=== PATIENT | female | born 1935 | race Caucasian/White ===

== ENCOUNTER 2017-05-31 16:54 | Observation (INO) | payer MEDICARE, OTHER ==
[~2017-05-31] VITALS: Ht 157.5 cm; Wt 65.0 kg
[~2017-05-31 16:54] MED LIST: COUM5TAB PO; FLON0.053; LEVO75TA3 PO; LISI2.5T55 PO; LORA1TAB PO; METO50TA PO; ROSU10 PO; VENTAER INH; VITA500T10 PO
[2017-05-31 17:10] VITALS: BP 172/74; PULSE 85; RESP 17; TEMP 98.7; O2SAT 95
[2017-05-31] MEDS ORDERED: SODIUM CHLOR 0.9% 1000 ML INJ 1,000 ML IV ONE (17:58)
[2017-05-31] MEDS ORDERED: DIPHTH/TETANUS/ACEL PERTUSSIS (BOOSTER) 0.5 ML VIAL/PFS IM ONE (18:00)
[2017-05-31] MEDS ORDERED: SODIUM CHLORIDE 0.9% FLUSH 10 ML FLUSH IVF PRN (18:00)
--- NOTE | 2017-05-31 18:02 | PD ---
HPI Chief Complaint: Syncope/Near-Syncope Time Seen by Provider: 17:49 Travel History International Travel<30 days: No Contact w/Intl Traveler<30days: No Traveled to known affect area: No History of Present Illness HPI Patient is a 82-year-old female with history of TIA, Hypertension, Hyperlipidemia, Hypothyroidism, presents to ER after she had a syncopal episode today. Patient reports that she was out to lunch today, reports that she currently is being treated for urinary tract infection with antibiotics. Patient reports that she was getting off the toilet when she fell forward and blacked out. Patient reports that she hit her head on the wall, reports that when she realized she was on the ground, she did scream for help. Patient reports that she saw blood all over the floors, patient currently is on Coumadin as she has history of TIAs. Patient presents the emergency with complaints of a headache and pains to her right hand where her laceration is. Patient with no pain or shortness of breath at this time. Patient with no fevers or chills, no nausea or vomiting, with no abdominal pain, patient with no other complaints at this time. PFSH Past Medical History Hx Anticoagulant Therapy: Yes Arthritis: No Asthma: No Autoimmune Disease: No Anxiety: No Depression: No Heart Rhythm Problems: No Cancer: Yes (SKIN) Cardiac Catheterization: Yes Cardiovascular Problems: Yes High Cholesterol: Yes Chemotherapy: No Chest Pain: Yes (NM ) Congestive Heart Failure: No COPD: No Cerebrovascular Accident: Yes (TIA) Diabetes: Yes (TYPE II CONTROLLED BY DIET ) Patient Takes Glucophage: No Diminished Hearing: Yes (HEARING AIDS) Deep Vein Thrombosis: Yes Endocrine: Yes GERD: No Genitourinary: No Hiatal Hernia: No Hypertension: Yes Immune Disorder: No Kidney Stones: No Musculoskeletal: No Neurologic: Yes Psychiatric: No Reproductive: No Respiratory: No Immunizations Current: Yes Migraines: No Myocardial Infarction: Yes (2009) Radiation Therapy: No Renal Failure: No Seizures: No Sickle Cell Disease: No Sleep Apnea: No Thyroid Disease: Yes Triglycerides - High: Yes Ulcer: No ?: Not Menopausal: Yes Past Surgical History Abdominal Surgery: No AICD: No Appendectomy: Yes Arteriovenous Shunt: No Cardiac Surgery: No Ear Surgery: No Endocrine Surgery: No Eye Surgery: No Genitourinary Surgery: No Gynecologic Surgery: Yes (HYST) Hysterectomy: Yes Insulin Pump: No Joint Replacement: No Oral Surgery: No Pacemaker: No Thoracic Surgery: No Other Surgery: Yes (VEIN STRIPPING IN BOTH LEGS - 1972) Social History Alcohol Use: Yes (RARE) Tobacco Use: No Substance Use: No Allergies-Medications (Allergen,Severity, Reaction): Coded Allergies: Iodinated Contrast- Oral and IV Dye (Unverified Allergy, Severe, HIVES, ) PT STATES SHE DEVELOPED LARGE BUMPS ALL OVER AND HAD TO BE PLACED ON A STEROID DOSE PACK penicillin G (Unverified Allergy, Severe, HIVES, 05/31/17) Reported Meds & Prescriptions Reported Meds & Active Scripts Active Reported Cranberry Urinary Comfort (Vitamins C & E) 1 Cap 1 Cap PO BID [Urocholcine] 25 Mg PO TID Probiotic (Lactobacillus Acidophilus) 10 Billion Cell Cap 1 Cap PO DAILY Tramadol (Tramadol HCl) 50 Mg Tab 50 Mg PO HS Lorazepam 1 Mg Tab 1 Mg PO DAILY Warfarin 5 Mg Tab 5 Mg PO DAILY Ranitidine (Ranitidine HCl) 150 Mg Tab 150 Mg PO BID Verapamil SR (Verapamil HCl) 180 Mg Cap 180 Mg PO DAILY Metoprolol Tartrate 25 Mg Tab 25 Mg PO BID Atorvastatin (Atorvastatin Calcium) 40 Mg Tab 40 Mg PO HS Lisinopril 2.5 Mg Tab 2.5 Mg PO DAILY Gabapentin 100 Mg Cap 100 Mg PO BID Levothyroxine (Levothyroxine Sodium) 75 Mcg Tab 75 Mcg PO DAILY Review of Systems General / Constitutional: No: Fever Eyes: No: Visual changes HENT: Positive: Headaches, No: Neck Pain Cardiovascular: No: Chest Pain or Discomfort Respiratory: No: Shortness of Breath Gastrointestinal: No: Abdominal Pain Genitourinary: No: Dysuria Musculoskeletal: No: Pain Skin: No Rash Neurologic: Positive: Dizziness, Syncope, No: Weakness Psychiatric: No: Depression Endocrine: No: Polydipsia Hematologic/Lymphatic: No: Easy Bruising Physical Exam Narrative GENERAL: Moderate distress SKIN: Focused skin assessment warm/dry. HEAD: Normocephalic. Patient with a 2 cm linear laceration to her right lateral forehead above eyebrow EYES: Pupils equal and round. No scleral icterus. No injection or drainage. ENT: No nasal bleeding or discharge. Mucous membranes pink and moist. NECK: Trachea midline. No JVD. CARDIOVASCULAR: Regular rate and rhythm. No murmur appreciated. RESPIRATORY: No accessory muscle use. Clear to auscultation. Breath sounds equal bilaterally. GASTROINTESTINAL: Abdomen soft, non-tender, nondistended. Hepatic and splenic margins not palpable. MUSCULOSKELETAL: No obvious deformities. No clubbing. No cyanosis. No edema. Patient with a 2cm linear laceration to her right digit #3 volar aspect; patient with skin avulsion to left hand NEUROLOGICAL: Awake and alert. No obvious cranial nerve deficits. Motor grossly within normal limits. Normal speech. PSYCHIATRIC: Appropriate mood and affect; insight and judgment normal. Data Data Last Documented VS Vital Signs Date Time Temp Pulse Resp B/P (MAP) Pulse Ox O2 Delivery O2 Flow Rate FiO2 05/31/17 17:10 98.7 85 17 172/74 (106) 95 Orders Orders Electrocardiogram (05/31/17 ) Blood Glucose (05/31/17 17:49) Complete Blood Count With Diff (05/31/17 17:58) Comprehensive Metabolic Panel (05/31/17 17:58) Magnesium (Mg) (05/31/17 17:58) B-Type Natriuretic Peptide (05/31/17 17:58) Ckmb (Isoenzyme) Profile (05/31/17 17:58) Troponin I (05/31/17 17:58) Act Partial Throm Time (Ptt) (05/31/17 17:58) Prothrombin Time / Inr (Pt) (05/31/17 17:58) Urinalysis - C+S If Indicated (05/31/17 17:58) Chest, Single Ap (05/31/17 17:58) Ct Brain W/O Iv Contrast(Rout) (05/31/17 17:58) Ct Cerv Spine W/O Contrast (05/31/17 17:58) Ecg Monitoring (05/31/17 17:58) Iv Access Insert/Monitor (05/31/17 17:58) Oximetry (05/31/17 17:58) Sodium Chloride 0.9% Flush (Ns Flush) (05/31/17 18:00) Sodium Chlor 0.9% 1000 Ml Inj (Ns 1000 M (05/31/17 17:58) Lenz-Lpe-Dcwzmy (Booster) Inj (Boostrix (05/31/17 18:00) Hand, Complete ([id number]) (05/31/17 ) CKMB (05/31/17 18:30) CKMB% (05/31/17 18:30) Labs Laboratory Tests Test 05/31/17 18:30 White Blood Count 10.8 TH/MM3 Red Blood Count 4.78 MIL/MM3 Hemoglobin 13.3 GM/DL Hematocrit 40.0 % Mean Corpuscular Volume 83.7 FL Mean Corpuscular Hemoglobin 27.8 PG Mean Corpuscular Hemoglobin Concent 33.3 % Red Cell Distribution Width 17.0 % Platelet Count 349 TH/MM3 Mean Platelet Volume 7.0 FL Neutrophils (%) (Auto) 81.0 % Lymphocytes (%) (Auto) 9.6 % Monocytes (%) (Auto) 8.4 % Eosinophils (%) (Auto) 0.3 % Basophils (%) (Auto) 0.7 % Neutrophils # (Auto) 8.7 TH/MM3 Lymphocytes # (Auto) 1.0 TH/MM3 Monocytes # (Auto) 0.9 TH/MM3 Eosinophils # (Auto) 0.0 TH/MM3 Basophils # (Auto) 0.1 TH/MM3 CBC Comment DIFF FINAL Differential Comment Prothrombin Time 36.2 SEC Prothromb Time International Ratio 3.1 RATIO Activated Partial Thromboplast Time 36.8 SEC Urine Color COLORLESS Urine Turbidity CLEAR Urine pH 6.0 Urine Specific [place] 1.003 Urine Protein NEG mg/dL Urine Glucose (UA) NEG mg/dL Urine Ketones NEG mg/dL Urine Occult Blood TRACE Urine Nitrite NEG Urine Bilirubin NEG Urine Urobilinogen LESS THAN 2.0 MG/DL Urine Leukocyte Esterase NEG Urine WBC 1 /hpf Urine Squamous Epithelial Cells <1 /hpf Urine Bacteria RARE /hpf Microscopic Urinalysis Comment CULT NOT INDICATED Blood Urea Nitrogen 10 MG/DL Creatinine 0.79 MG/DL Random Glucose 126 MG/DL Total Protein 7.8 GM/DL Albumin 3.6 GM/DL Calcium Level 9.5 MG/DL Magnesium Level 2.1 MG/DL Alkaline Phosphatase 89 U/L Aspartate Amino Transf (AST/SGOT) 26 U/L Alanine Aminotransferase (ALT/SGPT) 27 U/L Total Bilirubin 0.3 MG/DL Sodium Level 139 MEQ/L Potassium Level 3.6 MEQ/L Chloride Level 104 MEQ/L Carbon Dioxide Level 28.8 MEQ/L Anion Gap 6 MEQ/L Estimat Glomerular Filtration Rate 70 ML/MIN Total Creatine Kinase 110 U/L Creatine Kinase MB 3.6 NG/ML Troponin I LESS THAN 0.02 NG/ML MDM Medical Decision Making Medical Screen Exam Complete: Yes Emergency Medical Condition: Yes Medical Record Reviewed: Yes Interpretation(s) EKG at 1805: NSR at 85bpm, qt/qtc: 376/419, 1st degree av block with no acute changes Vital Signs Date Time Temp Pulse Resp B/P (MAP) Pulse Ox O2 Delivery O2 Flow Rate FiO2 05/31/17 17:10 98.7 85 17 172/74 (106) 95 Differential Diagnosis Differential includes syncope, ACS, arrhythmia, intracranial hemorrhage, skin tear, skin lacerations Narrative Course 82-year-old female who presents to emergency room after she had a syncopal episode today while using the bathroom. Patient is currently taking Coumadin as she has history of TIAs. Patient was placed on a cardiac exercise specialist upon arrival to the emergency room, CT of the head, neck were ordered. EKG, Lab work ordered. IV line was established, tetanus will be updated. Vital Signs Date Time Temp Pulse Resp B/P (MAP) Pulse Ox O2 Delivery O2 Flow Rate FiO2 05/31/17 17:10 98.7 85 17 172/74 (106) 95 CBC & BMP Diagram 05/31/17 18:30 Total Protein 7.8, Albumin 3.6, Calcium Level 9.5, Magnesium Level 2.1, Alkaline Phosphatase 89, Aspartate Amino Transf (AST/SGOT) 26, Alanine Aminotransferase (ALT/SGPT) 27, Total Bilirubin 0.3 trop less than 0.02 ckbm: 3.[address] 05/31/171757 Signed Impressions: Service Date/Time: May 18:25 - CONCLUSION: No acute intracranial injury Dane Mejia MD Cervical Spine CT 05/31/171757 Signed Impressions: Service Date/Time: May 18:26 - CONCLUSION: No acute bony injury in the cervical spine. Disc protrusion visualized at C3-4 can be further evaluated on an elective basis with MRI if clinically indicated Dane Mejia MD Lacerations were sutured, plan to obs overnight for evaluation of syncope Diagnosis Primary Impression: Syncope and collapse Additional Impression: Facial laceration Admitting Information Admitting Physician Requests: Observation María Cyr DO May 31, 2017 18:02
[2017-05-31] MEDS ORDERED: [UNRECOGNIZED DRUG - OTHER] PO (18:42)
[2017-05-31] MEDS ORDERED: WARF-23 PO (18:42)
[2017-05-31] MEDS ORDERED: RANI150T PO (18:42)
[2017-05-31] MEDS ORDERED: GABA100C4 PO (18:42)
[2017-05-31] MEDS ORDERED: ATOR40TA16 PO (18:42)
[2017-05-31] MEDS ORDERED: VERA180C3 PO (18:42)
[2017-05-31] MEDS ORDERED: METO25TA3 PO (18:42)
[2017-05-31] MEDS ORDERED: LEVO75TA3 PO (18:42)
[2017-05-31] MEDS ORDERED: LISI2.5T3 PO (18:42)
[2017-05-31] MEDS ORDERED: CRANCAP2 PO (18:42)
[2017-05-31] MEDS ORDERED: LORA1TAB12 PO (18:42)
[2017-05-31] MEDS ORDERED: TRAM50TA PO (18:42)
[2017-05-31] MEDS ORDERED: LACTCAP8 PO (18:42)
[2017-05-31 18:55] LABS: AUTOMATED NEUTROPHIL # 8.7 TH/MM3 (1.8-7.7); BASOPHIL # 0.1 TH/MM3 (0-0.2); BASOPHIL % 0.7 % (0.0-2.0); EOSINOPHIL % 0.3 % (0.0-4.0); HEMOGLOBIN 13.3 GM/DL (11.6-15.3); LYMPH % 9.6 % (9.0-44.0); MEAN CELL VOLUME 83.7 FL (80.0-100.0); MEAN CORPUSCULAR HEMOGLOBIN 27.8 PG (27.0-34.0); MEAN CORPUSCULAR HGB CONC 33.3 % (32.0-36.0); MONO % 8.4 % (0.0-8.0); MONOCYTE # 0.9 TH/MM3 (0-0.9); PLATELET COUNT 349 TH/MM3 (150-450); RED BLOOD COUNT 4.78 MIL/MM3 (4.00-5.30); WHITE BLOOD COUNT 10.8 TH/MM3 (4.0-11.0)
[2017-05-31 18:59] LABS: BACTERIA, URINE RARE /hpf; BILIRUBIN, URINE NEG (NEG); BLOOD, URINE TRACE (NEG); GLUCOSE,URINE NEG (NEG); KETONE, URINE NEG (NEG); NITRITE,URINE NEG (NEG); SQUAMOUS EPITHELIAL CELL URINE <1 /hpf (0-5); URINE COLOR COLORLESS (YELLW/STRAW); URINE LEUKOCYTE ESTERASE NEG (NEG)
--- NOTE | 2017-05-31 19:03 | RADRPT ---
EXAM DATE/TIME: 05/31/2017 18:25 [facility] COMPARISON: CT BRAIN W/O CONTRAST, December 09, 2011, 21:33. INDICATIONS : Fell forward hit forhead on wall. RADIATION DOSE: 56.35 CTDIvol (mGy) MEDICAL HISTORY : Cardiovascular disease. Hypertension. Deep venous thrombosis.Diabetes SURGICAL HISTORY : Hysterectomy. ENCOUNTER: Initial ACUITY: 1 day PAIN SCALE: 5/10 LOCATION: cranial TECHNIQUE: Multiple contiguous axial images were obtained of the head. Using automated exposure control and adj ustment of the mA and/or kV according to patient size, radiation dose was kept as low as reasonably a chievable to obtain optimal diagnostic quality images. DICOM format image data is available electro nically for review and comparison. FINDINGS: There is patchy diminished attenuation in periventricular white matter which appears benign and chron ic. There is no evidence of intracranial mass or hemorrhage. As nothing to suggest acute infarction. CONCLUSION: No acute intracranial injury Dane Mejia MD on May 31, 2017 at 18:58 Board Certified Radiologist. This report was verified electronically.
[2017-05-31 19:07] LABS: ALT (GPT) 27 U/L (10-53)
--- NOTE | 2017-05-31 19:08 | RADRPT ---
EXAM DATE/TIME: 05/31/2017 18:26 [facility] COMPARISON: No previous studies available for comparison. INDICATIONS : Fell forward hit her forehead on wall. RADIATION DOSE: 33.38 CTDIvol (mGy) MEDICAL HISTORY : Cardiovascular disease. Hypertension. Deep venous thrombosis.Diabetes SURGICAL HISTORY : Hysterectomy. ENCOUNTER: Initial ACUITY: 1 day PAIN SCALE: 5/10 LOCATION: neck TECHNIQUE: Volumetric scanning of the cervical spine was performed. Multiplanar reconstructions in the sagittal, coronal and oblique axial planes were performed. Using automated exposure control and adjustment o f the mA and/or kV according to patient size, radiation dose was kept as low as reasonably achievable to obtain optimal diagnostic quality images. DICOM format image data is available electronically f or review and comparison. FINDINGS: Cervical spine alignment is satisfactory. There is no evidence of cervical spine fracture. No bony ca nal or foraminal compromise is identified. There is a moderate sized central to minimally right parac entral disc protrusion seen at C3-4. No evidence of paraspinal hematoma. CONCLUSION: No acute bony injury in the cervical spine. Disc protrusion visualized at C3-4 can be further evaluat ed on an elective basis with MRI if clinically indicated Dane Mejia MD on May 31, 2017 at 19:04 Board Certified Radiologist. This report was verified electronically.
[2017-05-31 19:11] LABS: ALKALINE PHOSPHATASE 89 U/L (45-117); INTERNATIONAL NORMALIZED RATIO 3.1 RATIO; PROTHROMBIN TIME - PATIENT 36.2 SEC (9.8-11.6); TOTAL BILIRUBIN ADULT 0.3 MG/DL (0.2-1.0); TOTAL PROTEIN 7.8 GM/DL (6.4-8.2); TROPONIN I LESS THAN 0.02 NG/ML (0.02-0.05)
[2017-05-31 19:14] LABS: ALBUMIN 3.6 GM/DL (3.4-5.0); AST (GOT) 26 U/L (15-37); BICARBONATE 28.8 MEQ/L (21.0-32.0); BLOOD UREA NITROGEN 10 MG/DL (7-18); CALCIUM 9.5 MG/DL (8.5-10.1); CHLORIDE 104 MEQ/L (98-107); CREATININE 0.79 MG/DL (0.50-1.00); GLOMERULAR FILTRATION RATE 70 ML/MIN (>89); GLUCOSE,RANDOM 126 MG/DL (74-106); MAGNESIUM 2.1 MG/DL (1.5-2.5); SODIUM (NA) 139 MEQ/L (136-145)
--- NOTE | 2017-05-31 19:53 | PD ---
Physical Exam Date Seen by Provider: May 31, 2017 Time Seen by Provider: 19:50 Narrative Right middle finger: Patient has a 2 cm volar laceration at the level of the PIP joint. No tendon or nerve injury. Patient also has a laceration involving the right forehead. This laceration measures 3 cm. No bony step off. Neurovascular intact. Tissues are contused. Data Data Last Documented VS Vital Signs Date Time Temp Pulse Resp B/P (MAP) Pulse Ox O2 Delivery O2 Flow Rate FiO2 05/31/17 17:10 98.7 85 17 172/74 (106) 95 Orders Orders Electrocardiogram (05/31/17 ) Blood Glucose (05/31/17 17:49) Complete Blood Count With Diff (05/31/17 17:58) Comprehensive Metabolic Panel (05/31/17 17:58) Magnesium (Mg) (05/31/17 17:58) B-Type Natriuretic Peptide (05/31/17 17:58) Ckmb (Isoenzyme) Profile (05/31/17 17:58) Troponin I (05/31/17 17:58) Act Partial Throm Time (Ptt) (05/31/17 17:58) Prothrombin Time / Inr (Pt) (05/31/17 17:58) Urinalysis - C+S If Indicated (05/31/17 17:58) Chest, Single Ap (05/31/17 17:58) Ct Brain W/O Iv Contrast(Rout) (05/31/17 17:58) Ct Cerv Spine W/O Contrast (05/31/17 17:58) Ecg Monitoring (05/31/17 17:58) Iv Access Insert/Monitor (05/31/17 17:58) Oximetry (05/31/17 17:58) Sodium Chloride 0.9% Flush (Ns Flush) (05/31/17 18:00) Sodium Chlor 0.9% 1000 Ml Inj (Ns 1000 M (05/31/17 17:58) [id number]-Gnpnto (Booster) Inj (Boostrix (05/31/17 18:00) Hand, Complete ([id number]) (05/31/17 ) CKMB (05/31/17 18:30) CKMB% (05/31/17 18:30) Labs Laboratory Tests Test 05/31/17 18:30 White Blood Count 10.8 TH/MM3 Red Blood Count 4.78 MIL/MM3 Hemoglobin 13.3 GM/DL Hematocrit 40.0 % Mean Corpuscular Volume 83.7 FL Mean Corpuscular Hemoglobin 27.8 PG Mean Corpuscular Hemoglobin Concent 33.3 % Red Cell Distribution Width 17.0 % Platelet Count 349 TH/MM3 Mean Platelet Volume 7.0 FL Neutrophils (%) (Auto) 81.0 % Lymphocytes (%) (Auto) 9.6 % Monocytes (%) (Auto) 8.4 % Eosinophils (%) (Auto) 0.3 % Basophils (%) (Auto) 0.7 % Neutrophils # (Auto) 8.7 TH/MM3 Lymphocytes # (Auto) 1.0 TH/MM3 Monocytes # (Auto) 0.9 TH/MM3 Eosinophils # (Auto) 0.0 TH/MM3 Basophils # (Auto) 0.1 TH/MM3 CBC Comment DIFF FINAL Differential Comment Prothrombin Time 36.2 SEC Prothromb Time International Ratio 3.1 RATIO Activated Partial Thromboplast Time 36.8 SEC Urine Color COLORLESS Urine Turbidity CLEAR Urine pH 6.0 Urine Specific [place] 1.003 Urine Protein NEG mg/dL Urine Glucose (UA) NEG mg/dL Urine Ketones NEG mg/dL Urine Occult Blood TRACE Urine Nitrite NEG Urine Bilirubin NEG Urine Urobilinogen LESS THAN 2.0 MG/DL Urine Leukocyte Esterase NEG Urine WBC 1 /hpf Urine Squamous Epithelial Cells <1 /hpf Urine Bacteria RARE /hpf Microscopic Urinalysis Comment CULT NOT INDICATED Blood Urea Nitrogen 10 MG/DL Creatinine 0.79 MG/DL Random Glucose 126 MG/DL Total Protein 7.8 GM/DL Albumin 3.6 GM/DL Calcium Level 9.5 MG/DL Magnesium Level 2.1 MG/DL Alkaline Phosphatase 89 U/L Aspartate Amino Transf (AST/SGOT) 26 U/L Alanine Aminotransferase (ALT/SGPT) 27 U/L Total Bilirubin 0.3 MG/DL Sodium Level 139 MEQ/L Potassium Level 3.6 MEQ/L Chloride Level 104 MEQ/L Carbon Dioxide Level 28.8 MEQ/L Anion Gap 6 MEQ/L Estimat Glomerular Filtration Rate 70 ML/MIN Total Creatine Kinase 110 U/L Creatine Kinase MB 3.6 NG/ML Troponin I LESS THAN 0.02 NG/ML [facility] Medical Record Reviewed: Yes Supervised Visit with LACEY: Yes Interpretation(s) Last [address] 10/26/17 1758 Signed Impressions: Service Date/Time: May 18:25 - CONCLUSION: No acute intracranial injury Dane Mejia MD Cervical Spine CT 05/31/171757 Signed Impressions: Service Date/Time: May 18:26 - CONCLUSION: No acute bony injury in the cervical spine. Disc protrusion visualized at C3-4 can be further evaluated on an elective basis with MRI if clinically indicated Dane Mejia MD Differential Diagnosis MDM: High Differential diagnoses: Fracture, sprain, strain, dislocation, contusion, neurovascular injury Narrative Course Patient's wounds are closest sutures Procedures Procedure Narrative LACERATION LOCATION: Right middle finger volar pad LENGTH: 2 cm NUMBER OF STITCHES/KIM: 4 REPAIR: The area of the laceration was prepped with Betadine and sterilely draped. The laceration was infiltrated with 1% lidocaine digital block. The wound was copiously irrigated and explored without evidence of foreign body, tendon injury or neurovascular injury. The wound was closed using 4-0 proline. This was a simple single layer repair. A sterile dressing was applied. The patient was advised to keep the dressing clean and dry. Patient tolerated the procedure well. LACERATION LOCATION: Right forehead LENGTH: 3 cm NUMBER OF STITCHES/KIM: 4 REPAIR: The area of the laceration was prepped with Betadine and sterilely draped. The laceration was infiltrated with 1% lidocaine with epinephrine. The wound was copiously irrigated and explored without evidence of foreign body , tendon injury or neurovascular injury. The wound was closed using 6-0 proline. This was a supple single layer repair. A sterile dressing was applied. The patient was advised to keep the dressing clean and dry. Patient tolerated the procedure well. Diagnosis Primary Impression: Syncope and collapse Additional Impression: Facial laceration Condition: Stable Oli Mcdaniel May 31, 2017 19:53
--- NOTE | 2017-05-31 20:26 | HHI.HP ---
[facility] Anjelica Bear MD Admission Diagnosis Syncope Diagnoses: (1) Syncope Diagnosis: Principal (2) Facial laceration Diagnosis: Principal (3) Dehydration Diagnosis: Principal (4) HTN (hypertension) Diagnosis: Principal (5) A-fib Diagnosis: Principal Travel History International Travel<30 Days: No Contact w/Intl Traveler <30 Da: No Traveled to Known Affected Are: No History of Present Illness This is an 82-year-old female with a PMH of HTN, Hyperlipidemia, A. fib on Coumadin, Diet Controlled DM, h/o TIA and CAD who was brought to the ER after syncopal event. Per patient she's been on Bactrim for UTI and has had intermittent episodes of dizziness. Today, had syncopal event while getting up from the toilet. +head trauma. No h/o similar symptoms. On arrival, BP 172/74 , HR 85, O2 sat 95% on RA, Afebrile. CBC unremarkable. Chemistry essentially unremarkable except for GFR 70. Troponin negative. INR 3.1. UA negative. CT Head with no acute findings. CT C-spine negative for fracture. CXR with no acute findings. +facial lacerations on exam, s/p suture in ER. Review of Systems Except as stated in HPI: all other systems reviewed are Neg ROS: 14 point review of systems otherwise negative. Past Family Social History Past Medical History PMH: HTN, Hyperlipidemia, A. fib on Coumadin, Diet Controlled DM, h/o TIA and CAD Past Surgical History PAST SURGICAL HISTORY: Appendectomy, Hysterectomy, Vein Stripping Allergies: Coded Allergies: Iodinated Contrast- Oral and IV Dye (Unverified Allergy, Severe, HIVES, ) PT STATES SHE DEVELOPED LARGE BUMPS ALL OVER AND HAD TO BE PLACED ON A STEROID DOSE PACK penicillin G (Unverified Allergy, Severe, HIVES, 05/31/17) Family History PAST FAMILY HISTORY: Reviewed. No h/o DM or CAD Social History PAST SOCIAL HISTORY: Occasional alcohol. Negative for tobacco or drugs. Physical Exam Vital Signs Vital Signs Date Time Temp Pulse Resp B/P (MAP) Pulse Ox O2 Delivery O2 Flow Rate FiO2 05/31/17 17:10 98.7 85 17 172/74 (106 95 Physical Exam PE: GENERAL: Pleasant elderly female in no acute distress. HEENT: PERRLA, EOMI. No scleral icterus or conjunctival pallor. No lid lag or facial droop. Facial laceration right forehead, s/p sutures. CARDIOVASCULAR: Regular rate and rhythm. No obvious murmurs to auscultation. No chest tenderness to palpation. RESPIRATORY: No obvious rhonchi or wheezing. Clear to auscultation. Breath sounds equal bilaterally. GASTROINTESTINAL: Abdomen soft, non-tender, nondistended. BS normal. MUSCULOSKELETAL: Extremities without clubbing, cyanosis, or edema. No obvious deformities. NEUROLOGICAL: Awake, alert and oriented x4. No focal neurologic deficits. Moving both upper and lower extremities spontaneously. Laboratory Laboratory Tests Test 05/31/17 18:30 White Blood Count 10.8 Red Blood Count 4.78 Hemoglobin 13.3 Hematocrit 40.0 Mean Corpuscular Volume 83.7 Mean Corpuscular Hemoglobin 27.8 Mean Corpuscular Hemoglobin Concent 33.3 Red Cell Distribution Width 17.0 Platelet Count 349 Mean Platelet Volume 7.0 Neutrophils (%) (Auto) 81.0 Lymphocytes (%) (Auto) 9.6 Monocytes (%) (Auto) 8.4 Eosinophils (%) (Auto) 0.3 Basophils (%) (Auto) 0.7 Neutrophils # (Auto) 8.7 Lymphocytes # (Auto) 1.0 Monocytes # (Auto) 0.9 Eosinophils # (Auto) 0.0 Basophils # (Auto) 0.1 CBC Comment DIFF FINAL Differential Comment Prothrombin Time 36.2 Prothromb Time International Ratio 3.1 Activated Partial Thromboplast Time 36.8 Urine Color COLORLESS Urine Turbidity CLEAR Urine pH 6.0 Urine Specific Irene 1.003 Urine Protein NEG Urine Glucose (UA) NEG Urine Ketones NEG Urine Occult Blood TRACE Urine Nitrite NEG Urine Bilirubin NEG Urine Urobilinogen LESS THAN 2.0 Urine Leukocyte Esterase NEG Urine WBC 1 Urine Squamous Epithelial Cells <1 Urine Bacteria RARE Microscopic Urinalysis Comment CULT NOT INDICATED Blood Urea Nitrogen 10 Creatinine 0.79 Random Glucose 126 Total Protein 7.8 Albumin 3.6 Calcium Level 9.5 Magnesium Level 2.1 Alkaline Phosphatase 89 Aspartate Amino Transf (AST/SGOT) 26 Alanine Aminotransferase (ALT/SGPT) 27 Total Bilirubin 0.3 Sodium Level 139 Potassium Level 3.6 Chloride Level 104 Carbon Dioxide Level 28.8 Anion Gap 6 Estimat Glomerular Filtration Rate 70 Total Creatine Kinase 110 Creatine Kinase MB 3.6 Troponin I LESS THAN 0.02 B-Type Natriuretic Peptide 54 Result Diagram: 05/31/17182905/31/171829 Caprini VTE Risk Assessment Caprini VTE Risk Assessment: Mod/High Risk (score >= 2) VTE Pharm Contraindication: High risk for bleeding Caprini Risk Assessment Model Point Value = 1 Point Value = 2 Point Value = 3 Point Value = 5 Age 41-60 Minor surgery BMI > 25 kg/m2 Swollen legs Varicose veins or History of unexplained or recurrent spontaneous Oral contraceptives or hormone replacement Sepsis (< 1 month) Serious lung disease, including pneumonia (< 1 month) Abnormal pulmonary function Acute myocardial infarction Congestive heart failure (< 1 month) History of inflammatory bowel disease Medical patient at bed rest Age 61-74 Arthroscopic surgery Major open surgery (> 45 min) Laparoscopic surgery (> 45 min) Malignancy Confined to bed (> 72 hours) Immobilizing plaster cast Central venous access Age >= 75 History of VTE Family history of VTE Factor V Leiden Prothrombin [id number] Lupus anticoagulant Anticardiolipin antibodies Elevated serum homocysteine Heparin-induced thrombocytopenia Other congenital or acquired thrombophilia Stroke (< 1 month) Elective arthroplasty Hip, pelvis, or leg fracture Acute spinal cord injury (< 1 month) Prophylaxis Regimen Total Risk Factor Score Risk Level Prophylaxis Regimen 0-1 Low Early ambulation 2 Moderate Order ONE of the following: *Sequential Compression Device (SCD) *Heparin 5000 units SQ BID 3-4 Higher Order ONE of the following medications: *Heparin 5000 units SQ TID *Enoxaparin/Lovenox 40 mg SQ daily (WT < 150 kg, CrCl > 30 mL/min) *Enoxaparin/Lovenox 30 mg SQ daily (WT < 150 kg, CrCl > 10-29 mL/min) *Enoxaparin/Lovenox 30 mg SQ BID (WT < 150 kg, CrCl > 30 mL/min) AND/OR *Sequential Compression Device (SCD) 5 or more Highest Order ONE of the following medications: *Heparin 5000 units SQ TID (Preferred with Epidurals) *Enoxaparin/Lovenox 40 mg SQ daily (WT < 150 kg, CrCl > 30 mL/min) *Enoxaparin/Lovenox 30 mg SQ daily (WT < 150 kg, CrCl > 10-29 mL/min) *Enoxaparin/Lovenox 30 mg SQ BID (WT < 150 kg, CrCl > 30 mL/min) AND *Sequential Compression Device (SCD) Assessment and Plan Problem List: (1) Syncope ICD Code: R55 - Syncope and collapse (2) Facial laceration ICD Code: S01.81XA - Laceration without foreign body of other part of head, initial encounter Status: Acute (3) Dehydration ICD Code: E86.0 - Dehydration (4) HTN (hypertension) ICD Code: I10 - Essential (primary) hypertension (5) A-fib ICD Code: I48.91 - Unspecified atrial fibrillation Assessment and Plan A/P: 1. Syncope: acute syncopal event, +head trauma, +dizziness for few days, currently on treatment for UTI, likely vasovagal secondary to dehydration. CT Head/C-Spine w/ no acute findings, images reviewed by me. Trop negative, EKG w / no acute findings. Admit for Observation, Telemetry, check serial cardiac enzymes, check Echo, IVF for hydration. 2. Facial Laceration: secondary to above, s/p suture placement in ER. 3. Dehydration: GFR 70, IVF for hydration, repeat labs in am. 4. HTN: BP 170's on arrival, currently 144/80, HR 77. Resume home medications , monitor BP. 5. A-fib: Chronic. On Coumadin, INR 3.1, hold Coumadin for now in light of head injury. Repeat INR in am. 6. DVT Prophylaxis: On Coumadin as above. 7. Social work for d/c planning as needed. 8. Case discussed w/ ER physician at length. Latha Ferguson MD May 31, 2017 20:26
[2017-05-31] MEDS ORDERED: SODIUM CHLORIDE 0.9% FLUSH 10 ML FLUSH IV FLUSH PRN (20:30)
[2017-05-31] MEDS ORDERED: ONDANSETRON HCL 4 MG/2 ML VIAL IVP PRN (20:30)
[2017-05-31] MEDS ORDERED: LACTULOSE SYRUP 20 GM/30 ML CUP PO PRN (20:30)
[2017-05-31] MEDS ORDERED: ACETAMINOPHEN/HYDROcodone 325 MG/5 MG TAB PO PRN (20:30)
[2017-05-31] MEDS ORDERED: ACETAMINOPHEN 325 MG TAB PO PRN (20:30)
[2017-05-31] MEDS ORDERED: MAGNESIUM HYDROXIDE SUSP 30 ML CUP PO PRN (20:30)
[2017-05-31] MEDS ORDERED: SENNOSIDES 8.6 MG TAB PO PRN (20:30)
[2017-05-31] MEDS ORDERED: BISACODYL 10 MG SUPP RECTAL PRN (20:30)
[2017-05-31] MEDS: SODIUM CHLORIDE 0.9% FLUSH 10 ML FLUSH IV FLUSH SCH (21:00)
[2017-05-31] MEDS ORDERED: ATORVASTATIN 40 MG TAB PO SCH (21:00)
--- NOTE | 2017-05-31 21:07 | RADRPT ---
EXAM DATE/TIME: 05/31/2017 20:53 [facility] COMPARISON: No previous studies available for comparison. INDICATIONS : Syncope. MEDICAL HISTORY : Myocardial infarction. SURGICAL HISTORY : None. ENCOUNTER: Initial ACUITY: 1 day PAIN SCORE: 0/10 LOCATION: Bilateral chest FINDINGS: A single view of the chest demonstrates the lungs to be symmetrically aerated without evidence of mas s, infiltrate or effusion. The cardiomediastinal contours are unremarkable. Osseous structures are intact. CONCLUSION: No acute disease. Dane Mejia MD on May 31, 2017 at 21:05 Board Certified Radiologist. This report was verified electronically.
[2017-05-31 21:27] VITALS: BP 168/84; PULSE 82; RESP 17; O2SAT 98
[2017-05-31] MEDS: METOPROLOL TARTRATE 25 MG TAB PO SCH (21:34)
[2017-05-31] MEDS: SODIUM CHLOR 0.9% 1000 ML INJ 1,000 ML IV SCH (21:34)
[2017-05-31] MEDS: GABAPENTIN 100 MG CAP PO SCH (21:34)
[2017-05-31] MEDS: FAMOTIDINE 20 MG TAB PO SCH (21:35)
[2017-05-31] MEDS: MORPHINE SULFATE 4 MG/ML INJ IV PUSH PRN (21:35)
[2017-05-31] MEDS: DOCUSATE SODIUM 50 MG/SENNA 8.6 MG TAB PO SCH (21:35)
--- NOTE | 2017-05-31 21:38 | RADRPT ---
EXAM DATE/TIME: 05/31/2017 20:56 [facility] COMPARISON: No previous studies available for comparison. INDICATIONS : Right hand pain after fall. MEDICAL HISTORY : None. SURGICAL HISTORY : None. ENCOUNTER: Initial ACUITY: 1 day PAIN SCORE: 6/10 LOCATION: Right hand, 3rd and 4th digit. FINDINGS: There is no evidence of fracture or dislocation. Mineralization is normal. There are mild degenerativ e arthritic changes present most significantly involving the index finger and the radial aspect of th e wrist. There are vascular calcifications present in the soft tissues. CONCLUSION: No acute bony injury Dane Mejia MD on May 31, 2017 at 21:34 Board Certified Radiologist. This report was verified electronically.
--- NOTE | 2017-05-31 23:05 | EKG ---
Date Performed: 05/31/2017 Time Performed: 18:05:24 PTAGE: 82 years EKG: Sinus rhythm WITH FIRST DEGREE AV BLOCK ABNORMAL ECG PREVIOUS TRACING : 12/09/2011 21.01 Compared to prior tracing no significant change DOCTOR: Wallace Campbell Interpretating Date/Time 05/31/2017 23:03:55
[2017-05-31 23:06] VITALS: BP 144/80; PULSE 77; RESP 18; TEMP 98.9; O2SAT 94
[2017-06-01] VITALS (8 sets, daily range): BP systolic 129–188; BP diastolic 65–97; PULSE 71–97; RESP 16–18; TEMP 97.4–98.8; O2SAT 91–98
[2017-06-01] MEDS: MORPHINE SULFATE 4 MG/ML INJ IV PUSH PRN (00:53)
[2017-06-01] MEDS: SODIUM CHLOR 0.9% 1000 ML INJ 1,000 ML IV SCH ×2 (05:20→13:54)
[2017-06-01] MEDS ORDERED: LEVOTHYROXINE SODIUM 75 MCG TAB PO SCH (06:00)
[2017-06-01 07:24] LABS: AUTOMATED NEUTROPHIL # 6.2 TH/MM3 (1.8-7.7); BASOPHIL # 0.1 TH/MM3 (0-0.2); BASOPHIL % 0.6 % (0.0-2.0); EOSINOPHIL % 0.4 % (0.0-4.0); HEMATOCRIT 34.8 % (35.0-46.0); HEMOGLOBIN 11.4 GM/DL (11.6-15.3); LYMPH % 17.7 % (9.0-44.0); LYMPHOCYTE # 1.6 TH/MM3 (1.0-4.8); MEAN CELL VOLUME 83.2 FL (80.0-100.0); MEAN CORPUSCULAR HEMOGLOBIN 27.2 PG (27.0-34.0); MEAN CORPUSCULAR HGB CONC 32.7 % (32.0-36.0); MEAN PLATELET VOLUME 7.2 FL (7.0-11.0); MONO % 13.4 % (0.0-8.0); MONOCYTE # 1.2 TH/MM3 (0-0.9); NEUT % 67.9 % (16.0-70.0); PLATELET COUNT 314 TH/MM3 (150-450); RED BLOOD COUNT 4.18 MIL/MM3 (4.00-5.30); RED CELL DISTRIBUTION WIDTH 16.5 % (11.6-17.2); WHITE BLOOD COUNT 9.2 TH/MM3 (4.0-11.0)
[2017-06-01 07:31] LABS: INTERNATIONAL NORMALIZED RATIO 2.2 RATIO; PROTHROMBIN TIME - PATIENT 25.5 SEC (9.8-11.6)
[2017-06-01 08:03] LABS: ALKALINE PHOSPHATASE 70 U/L (45-117); ALT (GPT) 20 U/L (10-53); AST (GOT) 21 U/L (15-37); BICARBONATE 24.5 MEQ/L (21.0-32.0); BLOOD UREA NITROGEN 8 MG/DL (7-18); CALCIUM 8.8 MG/DL (8.5-10.1); CHLORIDE 104 MEQ/L (98-107); CREATININE 0.51 MG/DL (0.50-1.00); GLOMERULAR FILTRATION RATE 115 ML/MIN (>89); GLUCOSE,RANDOM 104 MG/DL (74-106); SODIUM (NA) 137 MEQ/L (136-145); TOTAL BILIRUBIN ADULT 0.6 MG/DL (0.2-1.0); TOTAL PROTEIN 6.3 GM/DL (6.4-8.2); TROPONIN I 0.03 NG/ML (0.02-0.05)
[2017-06-01] MEDS ORDERED: LACTOBACILLUS ACIDOPHILUS TAB PO SCH (09:00)
[2017-06-01] MEDS ORDERED: LORazepam 1 MG TAB PO SCH (09:00)
[2017-06-01] MEDS ORDERED: VERAPAMIL HCL 180 MG SUSTAINED RELEASE TAB PO SCH (09:00)
[2017-06-01] MEDS: DOCUSATE SODIUM 50 MG/SENNA 8.6 MG TAB PO SCH (09:40)
[2017-06-01] MEDS: GABAPENTIN 100 MG CAP PO SCH (09:40)
[2017-06-01] MEDS: SODIUM CHLORIDE 0.9% FLUSH 10 ML FLUSH IV FLUSH SCH (09:41)
[2017-06-01] MEDS: FAMOTIDINE 20 MG TAB PO SCH (09:41)
[2017-06-01] MEDS: METOPROLOL TARTRATE 25 MG TAB PO SCH (09:41)
--- NOTE | 2017-06-01 09:43 | HHI.PR ---
Subjective Remarks The patient is in bed, appears in nad. Says she did not feel dizzy anymore. Says he has no headache, no change in vision, no motor deficit. Has pain in her right hand. Swelling improved but not much. No cp/sob/n/v/d/c. Objective Vitals Vital Signs Date Time Temp Pulse Resp B/P (MAP) Pulse Ox O2 Delivery O2 Flow Rate FiO2 06/01/17 08:00 77 06/01/17 07:47 97.9 77 16 143/70 (94) 94 06/01/17 04:15 98.8 97 18 188/97 (127) 94 06/01/17 03:16 77 06/01/17 01:06 15 06/01/17 00:07 79 05/31/17 23:06 98.9 77 18 144/80 (101) 94 05/31/17 22:28 05/31/17 21:27 82 17 168/84 (112) 98 Room Air 05/31/17 17:10 98.7 85 17 172/74 (106) 95 I/O 05/31/17 05/31/17 05/31/17 06/01/17 06/01/17 06/01/17 07:00 15:00 23:00 07:00 15:00 23:00 Intake Total 720 ml Balance 720 ml Intake Oral 720 ml # Voids 4 Result Diagram: 06/01/17 0658 06/01/17657 Imaging Last Impressions Head CT 05/31/171757 Signed Impressions: Service Date/Time: May 18:25 - CONCLUSION: No acute intracranial injury Dane Mejia MD Chest X-Ray 05/31/171757 Signed Impressions: Service Date/Time: May 20:53 - CONCLUSION: No acute disease. Dane Mejia MD Cervical Spine CT 05/31/171757 Signed Impressions: Service Date/Time: May 18:26 - CONCLUSION: No acute bony injury in the cervical spine. Disc protrusion visualized at C3-4 can be further evaluated on an elective basis with MRI if clinically indicated Dane Mejia MD Hand X-Ray 05/31/17 0000 Signed Impressions: Service Date/Time: May 20:56 - CONCLUSION: No acute bony injury Dane Mejia MD Objective Remarks GENERAL: Pleasant elderly female in no acute distress. HEENT: PERRLA, EOMI. No scleral icterus or conjunctival pallor. No lid lag or facial droop. Facial laceration right forehead, s/p sutures. CARDIOVASCULAR: Regular rate and rhythm. No obvious murmurs to auscultation. No chest tenderness to palpation. RESPIRATORY: No obvious rhonchi or wheezing. Clear to auscultation. Breath sounds equal bilaterally. GASTROINTESTINAL: Abdomen soft, non-tender, nondistended. BS normal. MUSCULOSKELETAL: Right hand with edema. Extremities without clubbing, cyanosis, or edema. No obvious deformities. NEUROLOGICAL: Awake, alert and oriented x4. No focal neurologic deficits. Moving both upper and lower extremities spontaneously. A/P Problem List: (1) Syncope ICD Code: R55 - Syncope and collapse (2) Facial laceration ICD Code: S01.81XA - Laceration without foreign body of other part of head, initial encounter Status: Acute (3) Dehydration ICD Code: E86.0 - Dehydration (4) HTN (hypertension) ICD Code: I10 - Essential (primary) hypertension (5) A-fib ICD Code: I48.91 - Unspecified atrial fibrillation Assessment and Plan Syncope: acute syncopal event, +head trauma, +dizziness for few days, currently on treatment for UTI, likely vasovagal secondary to dehydration. CT Head/C-Spine reviewed no acute findings. Trop negative, EKG w/ no acute findings. Telemetry. Serial cardiac enzymes neg Echo pending Will check carotic US On IVF for hydration Facial Laceration/ right hand laceration: secondary to above, s/p suture placement in ER. X ray right hand no fracture Dehydration: GFR 70, IVF for hydration, repeat labs in am. HTN: BP 170's on arrival, currently 144/80, HR 77. Resume home medications, monitor BP. A-fib: Chronic. On Coumadin, INR 3.1, hold Coumadin for now in light of head injury. Monitor INR. DVT Prophylaxis: On Coumadin as above. Case management for d/c planning as needed. Discussed with the patient, nurse Phyllis Patel MD Jun 01, 2017 09:43
[2017-06-01] MEDS ORDERED: BETH25 PO (11:28)
--- NOTE | 2017-06-01 14:45 | ECHRPT ---
Indication: CARDIOMYOPATHY CONCLUSIONS Normal left ventricular size. Wall thickness is normal. The left ventricular systolic function is low normal with an estimated ejection fraction in the rang e of 50- 55%. The left atrial size is upper limits of normal. Mild mitral valve regurgitation. Mild mitral annular calcification. There is very mild sclerosis. There is trace tricuspid valve regurgitation. The estimated pulmonary arterial pressure is 34 mmHg. The pulmonary valve is not well visualized. There is a trivial pericardial effusion present. BP: 188 / 97 HR: 97 Rhythm: Sinus MEASUREMENTS (Male / Female) Normal Values Technical Quality:Good 2D ECHO LV Diastolic Diameter PLAX 4.1 cm 4.2 - 5.9 / 3.9 - 5.3 cm LV Systolic Diameter PLAX 3.0 cm IVS Diastolic Thickness 1.0 cm 0.6 - 1.0 / 0.6 - 0.9 cm LVPW Diastolic Thickness 0.8 cm 0.6 - 1.0 / 0.6 - 0.9 cm LV Relative Wall Thickness 0.4 RV Internal Dim ED PLAX 1.9 cm LA Systolic Diameter LX 3.7 cm 3.0 - 4.0 / 2.7 - 3.8 cm M-MODE Aortic Root Diameter MM 3.1 cm AV Cusp Separation MM 2.0 cm DOPPLER MR Peak Velocity 490.0 cm/s MR Peak Gradient 96.0 mmHg Mitral E Point Velocity 87.9 cm/s Mitral A Point Velocity 55.8 cm/s Mitral E to A Ratio 1.6 TR Peak Velocity 292.0 cm/s TR Peak Gradient 34.1 mmHg FINDINGS LEFT VENTRICLE Normal left ventricular size. Wall thickness is normal. The left ventricular systolic function is low normal with an estimated ejection fraction in the rang e of 50- 55%. RIGHT VENTRICLE Normal right ventricular size and systolic function. LEFT ATRIUM The left atrial size is upper limits of normal. RIGHT ATRIUM The right atrial size is normal. ATRIAL SEPTUM Normal atrial septal thickness without atrial level shunting by limited color doppler interrogation. AORTA The aortic root and proximal ascending aorta are normal in size on limited imaging. MITRAL VALVE Mild mitral valve regurgitation. Mild mitral annular calcification. AORTIC VALVE Trileaflet aortic valve. No aortic valve stenosis or regurgitation. There is very mild sclerosis. TRICUSPID VALVE There is trace tricuspid valve regurgitation. The estimated pulmonary arterial pressure is 34 mmHg. PULMONARY VALVE The pulmonary valve is not well visualized. VESSELS The inferior vena cava is normal in size. PERICARDIUM There is a trivial pericardial effusion present. Gimenez E. Leonardo MD (Electronically Signed) Final Date:01 June 2017 14:44
--- NOTE | 2017-06-01 14:58 | RADRPT ---
EXAM DATE/TIME: 06/01/2017 14:30 [facility] COMPARISON: No previous studies available for comparison. INDICATIONS : Syncope. MEDICAL HISTORY : Hypothyroidism. Myocardial infarction. Hypercholesterolemia. Hearing loss. Transient ischemic attack. Anticoagulant therapy. Hyperlipidemia. Hypertension. DVT. Diabetes. Arthritis. Skin cancer. Blood tr ansfusion. SURGICAL HISTORY : Hysterectomy. Appendectomy. Bladder sling. Vein stripping. ENCOUNTER: Initial ACUITY: 1 day PAIN SCORE: 0/10 LOCATION: Bilateral neck PEAK SYSTOLIC VELOCITIES (cm/sec): ICA/CCA RATIO: Right: 0.8 Left: 0.9 ICA: Right: 67.2 Left: 82.2 CCA: Right: 87.1 Left: 91.9 ECA: Right: 64.6 Left: 51.5 VERTEBRAL: Right: 43.9 antegrade Left: 56.8 antegrade Elevated flow velocities and ICA/CCA ratios have been found to correlate with increased degrees of vessel stenosis, calculated as percentage of diameter relative to a normal segment of distal ICA/CCA FINDINGS: RIGHT CAROTID: No significant stenosis is visualized. The waveforms are within normal limits. LEFT CAROTID: No significant stenosis is visualized. The waveforms are within normal limits. VERTEBRAL ARTERIES: Antegrade flow is seen in both vertebral arteries. CONCLUSION: Normal hemodynamic profile both carotids. Francisco Burnett MD on June 01, 2017 at 14:55 Board Certified Radiologist. This report was verified electronically.
[2017-06-01] MEDS ORDERED: WARFARIN SOD 5 MG TAB PO SCH (16:00)
== END 2017-06-01 17:09 | disposition home or self-care (01) ==
LOC: NEPD 16:54 → NEDA 20:16 → NEPFCDU 22:42
PROVIDERS: ADMIT Hospitalist; ATTEND Hospitalist
DX: R55 Syncope and collapse (principal); Z86.73 Personal history of transient ischemic attack (TIA), and cerebral infarction without residual deficits; I10 Essential (primary) hypertension; E78.5 Hyperlipidemia, unspecified; E03.9 Hypothyroidism, unspecified; W18.12XA Fall from or off toilet with subsequent striking against object, initial encounter; Z79.01 Long term (current) use of anticoagulants; M79.641 Pain in right hand; R51 Headache; I25.2 Old myocardial infarction; E11.9 Type 2 diabetes mellitus without complications; Z79.899 Other long term (current) drug therapy; R42 Dizziness and giddiness; S01.81XA Laceration without foreign body of other part of head, initial encounter; S61.212A Laceration without foreign body of right middle finger without damage to nail, initial encounter; I44.0 Atrioventricular block, first degree; M50.21 Other cervical disc displacement, high cervical region; E86.0 Dehydration; I48.2 Chronic atrial fibrillation; Z23 Encounter for immunization
CPT/HCPCS: 12001; 12013; 70450; 71010; 72125; 73130; 80053; 81001; 82550; 82552; 83735; 83880; 84484; 85025; 85610; 85730; 90471; 90715; 93005; 93306; 93880; 96361; 96374; 96376; 97162; 99285; G0378; G8987; G8988; J2270; J7030

== ENCOUNTER 2017-09-29 11:36 | Emergency (ER) | payer MEDICARE, OTHER ==
[~2017-09-29] VITALS: Ht 157.5 cm; Wt 66.0 kg
[~2017-09-29 11:36] MED LIST changes: +ATOR40TA16 PO; +BETH25 PO; -COUM5TAB PO; +CRANCAP2 PO; -FLON0.053; +GABA100C4 PO; +LACTCAP8 PO; -LISI2.5T55 PO; -LORA1TAB PO; +LORA1TAB12 PO; +METO25TA3 PO; -METO50TA PO; +RANI150T PO; -ROSU10 PO; +TRAM50TA PO; -VENTAER INH; +VERA180C3 PO; -VITA500T10 PO; +WARF-23 PO
[2017-09-29 12:29] VITALS: BP 193/101; PULSE 89; RESP 20; TEMP 98.2; O2SAT 95
[2017-09-29] MEDS ORDERED: TRAM50TA PO (12:43)
[2017-09-29] MEDS ORDERED: LISI2.5T3 PO (12:43)
[2017-09-29] MEDS ORDERED: DOCU1CAP25 PO (12:43)
[2017-09-29] MEDS ORDERED: CRANPOW2 PO (12:43)
[2017-09-29] MEDS ORDERED: ZOFR4TAB PO (13:13)
--- NOTE | 2017-09-29 13:14 | PD ---
HPI Chief Complaint: GI Complaint Time Seen by Provider: 13:09 Travel History International Travel<30 days: No Contact w/Intl Traveler<30days: No Traveled to known affect area: No History of Present Illness HPI Patient presents with complaints of right upper quadrant discomfort with bloating and mild nausea for the last 2 days. States she has intermittent episodes like this in the last several years. Usually resolves throughout the day. Denies any episodes of vomiting. Denies any chest pain shortness of breath urinary or bowel symptoms. History of appendectomy several months ago. States she's received 2 CTs of the abdomen and pelvis for this pain which were negative for any acute findings. PFSH Past Medical History Hx Anticoagulant Therapy: Yes Arthritis: No Asthma: No Autoimmune Disease: No Blood Disorders: No Anxiety: No Depression: No Heart Rhythm Problems: No Cancer: Yes (SKIN) Cardiac Catheterization: Yes Cardiovascular Problems: Yes High Cholesterol: Yes Chemotherapy: No Chest Pain: Yes ([place] ) Congestive Heart Failure: No COPD: No Cerebrovascular Accident: Yes Diabetes: Yes (TYPE II CONTROLLED BY DIET ) Patient Takes Glucophage: No Diminished Hearing: Yes (HEARING AIDS) Deep Vein Thrombosis: Yes Endocrine: Yes GERD: No Genitourinary: Yes (BLADDER SLING) Hiatal Hernia: No Hypertension: Yes Immune Disorder: No Kidney Stones: No Musculoskeletal: Yes (ARTHRITIS IN LOWER BACK ) Neurologic: Yes (TIA (ON COUMADIN)) Psychiatric: No Reproductive: No Respiratory: No Immunizations Current: Yes Migraines: No Myocardial Infarction: Yes (2009) Radiation Therapy: No Renal Failure: No Seizures: No Sickle Cell Disease: No Sleep Apnea: No Thyroid Disease: Yes (HYPOTHYROID) Triglycerides - High: Yes Ulcer: No Tetanus Vaccination: < 5 Years Influenza Vaccination: No ?: Not Menopausal: Yes Past Surgical History Abdominal Surgery: No AICD: No Appendectomy: Yes Arteriovenous Shunt: No Cardiac Surgery: No Ear Surgery: No Endocrine Surgery: No Eye Surgery: No Genitourinary Surgery: No Gynecologic Surgery: Yes (HYST) Hysterectomy: Yes Insulin Pump: No Joint Replacement: No Oral Surgery: No Pacemaker: No Thoracic Surgery: No Other Surgery: Yes (VEIN STRIPPING IN BOTH LEGS - 1972) Social History Alcohol Use: Yes (RARE) Tobacco Use: No Substance Use: No Allergies-Medications (Allergen,Severity, Reaction): Coded Allergies: Iodinated Contrast- Oral and IV Dye (Unverified Allergy, Severe, HIVES, ) PT STATES SHE DEVELOPED LARGE BUMPS ALL OVER AND HAD TO BE PLACED ON A STEROID DOSE PACK penicillin G (Unverified Allergy, Severe, HIVES, 05/31/17) Reported Meds & Prescriptions Reported Meds & Active Scripts Active Reported [Cranberry] 4,200 Mg PO BID Stool Softener (Docusate Calcium) 240 Mg Cap 1 Tab PO DAILY Lisinopril 2.5 Mg Tab 2.5 Mg PO DAILY Urecholine (Bethanechol Chloride) 25 Mg Tab 25 Mg PO TID Probiotic (Lactobacillus Acidophilus) 10 Billion Cell Cap 1 Cap PO DAILY Tramadol (Tramadol HCl) 50 Mg Tab 50 Mg PO HS Lorazepam 1 Mg Tab 1 Mg PO DAILY Warfarin 5 Mg Tab 5 Mg PO DAILY Ranitidine (Ranitidine HCl) 150 Mg Tab 150 Mg PO BID Verapamil SR (Verapamil HCl) 180 Mg Cap 180 Mg PO DAILY Metoprolol Tartrate 25 Mg Tab 25 Mg PO BID Atorvastatin (Atorvastatin Calcium) 40 Mg Tab 40 Mg PO HS Gabapentin 100 Mg Cap 100 Mg PO BID Levothyroxine (Levothyroxine Sodium) 75 Mcg Tab 75 Mcg PO DAILY Review of Systems General / Constitutional: No: Fever Eyes: No: Visual changes HENT: No: Headaches Cardiovascular: No: Chest Pain or Discomfort Respiratory: No: Shortness of Breath Gastrointestinal: No: Abdominal Pain Genitourinary: No: Dysuria Musculoskeletal: No: Pain Skin: No Rash Neurologic: No: Weakness Psychiatric: No: Depression Endocrine: No: Polydipsia Hematologic/Lymphatic: No: Easy Bruising Physical Exam Narrative GENERAL: Well-nourished, well-developed patient. Anxious SKIN: Focused skin assessment warm/dry. HEAD: Normocephalic. EYES: No scleral icterus. No injection or drainage. NECK: Supple, trachea midline. No JVD or lymphadenopathy. CARDIOVASCULAR: Regular rate and rhythm without murmurs, gallops, or rubs. RESPIRATORY: Breath sounds equal bilaterally. No accessory muscle use. GASTROINTESTINAL: Abdomen soft, non-tender, nondistended. MUSCULOSKELETAL: No cyanosis, or edema. BACK: Nontender without obvious deformity. No CVA tenderness. Data Data Last Documented VS Vital Signs Date Time Temp Pulse Resp B/P (MAP) Pulse Ox O2 Delivery O2 Flow Rate FiO2 09/29/17 12:29 98.2 89 20 193/101 (131) 95 Orders Orders Ondansetron Odt (Zofran Odt) (09/29/17 13:15) MDM Medical Decision Making Medical Screen Exam Complete: Yes Emergency Medical Condition: Yes Differential Diagnosis Cholelithiasis, cholecystitis, gastritis, anxiety Narrative Course Assessment and plan discussed with patient at bedside. Patient declines a full workup. Diagnosis Primary Impression: Nausea Patient Instructions: General Instructions Additional Instructions: Encouraged a bland high-fiber brat diet. Encouraged [id number] Zantac. Encouraged to follow-up with PCP, return to emergency with any onset of new symptoms Med/Other Pt SpecificInfo: Prescription(s) given Scripts Ondansetron (Zofran) 4 Mg Tab 4 MG PO Q6HR Y for NAUSEA OR VOMITING, #20 TAB 0 Refills Prov: Armond Ray MD 09/29/17 Disposition: 01 DISCHARGE HOME Condition: Good Armond Ray MD Sep 29, 2017 13:14
[2017-09-29] MEDS ORDERED: ONDANSETRON ODT 4 MG TAB PO ONE (13:15)
[2017-09-29 13:45] VITALS: BP 142/86
== END 2017-09-29 13:55 | disposition home or self-care (01) ==
LOC: PHED 11:36
DX: R11.0 Nausea (principal); I10 Essential (primary) hypertension; I25.2 Old myocardial infarction; E78.00 Pure hypercholesterolemia, unspecified; E03.9 Hypothyroidism, unspecified; E11.9 Type 2 diabetes mellitus without complications; M19.90 Unspecified osteoarthritis, unspecified site; Z86.73 Personal history of transient ischemic attack (TIA), and cerebral infarction without residual deficits; Z85.828 Personal history of other malignant neoplasm of skin; Z86.718 Personal history of other venous thrombosis and embolism; Z88.0 Allergy status to penicillin; Z79.01 Long term (current) use of anticoagulants; Z79.899 Other long term (current) drug therapy
CPT/HCPCS: 99283